=== PATIENT | female | born 1970 | race Caucasian/White ===

== ENCOUNTER → 2025-01-04 14:01 | Outpatient (REF) | payer BC, SELFPAY | LOC: RAD 14:01 | PROVIDERS: ATTENDING PHYSICIAN Obstetrics & Gynecology; FAMILY PHYSICIAN Family Medicine Addiction Medicine | DX: E55.9 Vitamin D deficiency, unspecified (principal); M81.0 Age-related osteoporosis without current pathological fracture | CPT/HCPCS: 77080 ==